=== PATIENT | male | born 1965 | race Caucasian/White ===

== ENCOUNTER → 2017-12-02 | Outpatient (CLI) | payer OTHER ==
[~2017-12-02] MED LIST: K-DUR20 MEQ PO; NAPROSYN500 MG PO; PROVENTIL HFA6.7 GM IH; TRAMADOL HCL50 MG PO; ZESTORETIC 20-1 EAC1 PO; ZITHROMAX Z-PA250 MG PO; ZOCOR10 MG PO
== END | disposition home or self-care (01) ==
LOC: CDC 09:58
DX: Z01.810 Encounter for preprocedural cardiovascular examination (principal); I45.4 Nonspecific intraventricular block
CPT/HCPCS: 93000